=== PATIENT | male | born 1975 | race Caucasian/White ===

== ENCOUNTER 2018-10-28 10:41 | Outpatient (CLI) | payer MEDICAID, SELFPAY ==
[2018-10-28 12:58] LABS: Abs Immature Grans 0.02 k/cumm (0.0-0.09); Absolute Basophil Count 0.02 k/cumm (0.0-0.2); Absolute Eosinophil Count 0.08 k/cumm (0.0-0.7); Absolute Lymphocyte Count 1.93 k/cumm (1.2-3.4); Absolute Monocyte Count 0.57 k/cumm (0.11-0.7); Absolute Neutrophil Count 4.61 k/cumm (1.2-6.7); Basophils % 0.3; Eosinophils % 1.1; HCT 46.2 % (40.0-50.0); HGB 15.9 g/dL (13.5-17.5); Immature Grans % 0.3; Lymphocytes % 26.7; Mean Corp. HGB Concentration 34.4 g/dL (32.0-36.0); Mean Corpuscular Hemoglobin 30.7 pg (27.0-33.0); Mean Corpuscular Volume 89.2 fL (80-95); Mean Platelet Volume 10.9 fL (8.0-11.0); Monocytes % 7.9; Neutrophils % 63.7; Platelet Count 225 x1000/uL (130-400); RBC 5.18 m/cumm (4.50-6.00); RBC Distribution Width 13.1 % (11.8-14.1); White Blood Cell Count 7.23 k/cumm (4.4-10.8)
[2018-10-28 13:38] LABS: ESR 11 MM/HR (0-15)
[2018-10-28 13:45] LABS: Iron 107 ug/dL (50-175)
[2018-10-28 14:27] LABS: ALT 42 U/L (12-78); AST 15 U/L (15-37); Alkaline Phosphatase 83 U/L (46-116); BUN 8 mg/dL (7-18); CREATININE 0.84 mg/dL (0.70-1.30); Chloride 104 mmol/L (98-107); Cholesterol 161 mg/dL (50-200); Glucose 93 mg/dL (70-100); Potassium 4.3 mmol/L (3.5-5.1); Sodium 140 mmol/L (136-145); Triglyceride 180 mg/dL (30-150); Vitamin B12 367 pg/mL (193-986)
[2018-10-28 14:38] LABS: Bilirubin, Total 0.4 mg/dL (0.2-1.0); Calculated LDL 85; HDL Cholesterol 40 mg/dL (40-60)
[2018-10-28 14:52] LABS: C-Reactive Protein 0.26 mg/dL (0.0-0.3)
== END 2018-10-28 11:01 ==
PROVIDERS: PCP Family Medicine; Visit Provider Family Medicine
DX: K52.9 Noninfective gastroenteritis and colitis, unspecified (principal); R10.30 Lower abdominal pain, unspecified
CPT/HCPCS: 36415; 80053; 80061; 83721; 85652; 82607; 83540; 85025; 86140

== ENCOUNTER 2018-11-30 10:52 | Day surgery (SDC) | payer MEDICAID, SELFPAY ==
--- NOTE | 2018-11-30 07:09 | ENDO_ITS ---
Date of service: 11/30/18 Time of Service: 14:09 Endoscopy Report DATE OF PROCEDURE: 11/30/18 PRE-OP DIAGNOSIS: Abdominal pain POST-OP DIAGNOSIS: other (Duodenitis, Gastritis and esophagitis and colon polyp) PROCEDURE: 1. EGD with biopsies 2. Colonoscopy with biopsies SURGEON: Kelly Singh ANESTHESIA: other (General/ ASA 2/Carol Morales CRNA) ESTIMATED BLOOD LOSS: 5 PATHOLOGY: other (Duodenal bx, gastric bx, GE junction bx, randome bx of bowel and descending colon polyp) COMPLICATIONS: None DISPOSITION: same day INDICATIONS: Mr. Bailey is a pleasant 43 year ol male with abdominal pain. Risks, benefits and complications have been reviewed. Complications include but are not limited to bleeding, pain, perforation, missed small lesion/polyp, sore throat, aspiration and adverse reaction to the medications. Questions were entertained and answered to their satisfaction and they wished to proceed. No guarantees were given or implied. PREP: Miralax/Dulcolax PROCEDURE START TIME: 14:09 PROCEDURE END TIME: 14:53 COLONOSCOPY RETRACTION TIME: 20 minutes FINDINGS: EGD- moderate inflammation of the 1st and 2nd portion of the duodenum and stomach, mild inflammation of the esophagus Colonoscopy- normal appearing colon and terminal ileum. No inflammation noted. One descending colon polyp PROCEDURE DESCRIPTION: After informed consent was obtained the patient was take to the procedure room and placed in a supine position. Monitors were applied and a time out was done. The patients name, date of , procedure type, allergies to medications and metal in their body was reviewed. A bite block was placed and the patient was sedated. Once sedated and comfortable the gastroscope was advanced through the oropharynx which was grossly normal into the esophagus. The proximal and mid- esophagus were normal. In the distal esophagus there was mild inflammation noted. The scope was advanced into the stomach and through the pylorus into the 3rd portion of the duodenum. The 3rd portion of the duodenum was noted to be normal. In the 2nd and 1st portion of the duodenum moderate inflammation was noted. No ulcers were identified. Biopsies were done of the inflammed portion of the duodenum. The scope was retracted back into the stomach. There was moderate inflammation of the pylorus and antrum. Biopsies were done of the antrum to rule out H. pylori. Biopsies were done of the pylorus as well. There were no ulcers. The scope was retro-flexed. There was some old blood and mild inflammation noted in the cardia and fundus. There was no hiatal hernia noted. The scope was retracted back into the esophagus and biopsies were done of the GE junction to rule out Cruz's. The Z line was regular. The GE junction was at 38 cm. While the patient was still sedated they were placed in a left decubitous position. A rectal exam was done. External exam was normal. Internal exam revealed a normal sphincter tone and no palpable masses. The prostate felt smooth. The scope was then introduced and retro-flexed. No internal hemorrhoids were identified. The scope was then advanced to the cecum without difficulty. The TI and appendiceal orifice were identified. The prep was adequate. The scope was advanced into the terminal ileum for about 10 cm. The ileum looked normal. Biopsies were done to rule out microscopic colitis. The scope was then slowly retracted over 20 minutes back into the rectum. Random biopsies were done of the Ascending, transverse, descending, sigmoid and rectum to rule out microscopic colitis. One polyps was also identified in the descending colon and removed with cold forceps. The scope was removed and the patient was woken up and taken back to Same day surgery in stable condition. The patient tolerated the procedure well and there were no immediate complic ations. Follow up: 3 weeks in the office. Will start patient on Omeprazole daily and see if this helps his pain and nausea.
--- NOTE | 2018-11-30 07:11 | PDOC.DSDIS_ITS ---
Discharge Plan Disposition Patient Disposition: HOME Condition: Good Discharge Details Reason For Visit: ABD PAIN Attending Provider: Kelly Singh Primary Care Provider: Faisal Johnson Home Meds and New Rx's Prescriptions: New omeprazole magnesium [[employer] (omeprazole)] 20 mg capsule,delayed release(DR/EC) 20 mg PO DAILY Qty: 30 RF: 2 Discontinued polyethylene glycol 3350 17 gram/dose powder 238 g PO ONCE Qty: 238 RF: 0 bisacodyl [Dulcolax (bisacodyl)] 5 mg tablet,delayed release (DR/EC) 5 mg PO ONCE Qty: 4 RF: 0 Discharge Instructions Instructions: Colonoscopy (GEN), Upper Endoscopy (GEN), Duodenitis (ED), Gastritis (ED), Diet for Stomach Ulcers and Gastritis (ED), Colorectal Polyps (GEN) Additional Instructions: Findings: Inflammation of the duodenum and stomach Normal appearing large bowel and small bowel One polyp Follow up: 3 weeks Please call if you develop: fevers >101.5 Nausea or Vomiting Abdominal pain that is not transient DAY SURGERY UNIT POST COLONOSCOPY INSTRUCTIONS 1. Because there will be medication in your system for the next 24 hours, you may feel a little sleepy. Your coordination will be affected. Therefore: a. Do not drive or operate dangerous equipment for 24 hours. b. Do not drink alcohol beverages for 24 hours (not even beer). c. Plan to go home and rest for the day. 2. Generally there are no restrictions on your activity after a day or so has gone by, but you may feel a bit fatigued for a few days. 3 After you arrive home you may have a light meal and return to a normal diet as you can tolerate it without feeling sick to your stomach. 4. After surgery, you may feel pain or discomfort. This should be only transient, but if it persists please contact your doctor. 5. If there are any questions regarding the findings of your procedure, please feel free to contact your doctor. 6. If you are unable to contact your doctor with a problem, contact the hospital at [phone]. 7. Continue all your regular medications unless directed otherwise. I understand the above instructions and have no questions. Signature of Patient or Responsible Adult Escort Date/Time Name of Responsible Adult Escort Signature of Nurse Date/Time Stand Alone Forms: Gonzalo Crenshaw (DSU) Referrals: Kelly Singh MD [ [facility] STAFF PHYSICIAN] - 12/22/18 1:30 pm Activity:: Activity as Tolerated Diet:: low acid diet Discharge Orders Discharge Orders: Discharge Order (Routine); Ordered 11/30/18 Ordered By: Kelly Singh DS: Diagnosis Discharge Diagnosis (1) S/P colonoscopy: (2) H/O esophagogastroduodenoscopy: (3) Gastritis and duodenitis: (4) Esophagitis: (5) Colorectal polyp detected on colonoscopy:
[2018-11-30 11:55] VITALS: BP 119/85; PULSE 66; RESP 16; TEMP 36.1; O2SAT 99
[2018-11-30] MEDS: Lactated Ringers 1,000 ML 80 ML IV (12:13)
--- NOTE | 2018-11-30 14:12 | BOWEL_PTH ---
PATIENT: KAVITA PRATT LOC: [facility] U#:[id number] AGE/SX: 43/M ROOM: RE11/30/[address]: Kelly Singh MD : 1975 BED: DIS: 11/30/2018 SPEC #: [id number] RECD: 11/30/18 15:22 STATUS: TERRELL RECarline #: [id number] GARRY: 11/30/18 14:[address]: Kelly Singh DEPT: Surgical Specimen RECD BY: Marion Rose ENTERED: 11/30/18 15:27 SP TYPE: Bowel OTHR DR: Faisal Johnson MD Tissues: 1 - BIOPSY BOWEL 2 - BIOPSY BOWEL 3 - BIOPSY BOWEL 4 - BIOPSY BOWEL 5 - BIOPSY BOWEL 6 - BIOPSY BOWEL 7 - BIOPSY BOWEL 8 - BIOPSY BOWEL 9 - BIOPSY BOWEL 10 - BIOPSY BOWEL Procedures: GROSS AND MICRO LEVEL 4 Comments: [id number]
[2018-11-30 15:33] VITALS: BP 123/86; PULSE 60; RESP 16; TEMP 36.5; O2SAT 97
== END 2018-11-30 16:00 | disposition home or self-care (01) ==
LOC: SUR 11:30
PROVIDERS: PCP Family Medicine; Visit Provider Surgery
PROC: (CPT 45380; principal; 2018-11-30 12:45)
DX: R10.9 Unspecified abdominal pain (principal); R19.4 Change in bowel habit; K29.80 Duodenitis without bleeding; K31.89 Other diseases of stomach and duodenum; K21.0 Gastro-esophageal reflux disease with esophagitis; K22.70 Barrett's esophagus without dysplasia; D12.4 Benign neoplasm of descending colon
CPT/HCPCS: 45380; 43239; 88305

== ENCOUNTER 2018-12-30 01:16 | Outpatient (CLI) | payer MEDICAID, SELFPAY ==
--- NOTE | 2018-12-30 08:14 | DI.US_ITS ---
SYMPTOM/DIAGNOSIS: ABD PAIN, DIARRHEA, EARLY SATIETY, R10.84 ABDOMEN ULTRASOUND: The visualized liver parenchyma is normal in appearance. There is no evidence of cholelithiasis or biliary dilatation. Pancreas is somewhat heterogeneous in appearance but not grossly enlarged . There is a questionable finding. Kidneys and spleen appear normal. Abdominal aorta and IVC are of normal diameter. CONCLUSION: No evidence of cholelithiasis. Question pancreatic heterogeneity, this is a questionable finding. If there is any clinical indication of pancreatitis, additional evaluation with CT may be considered.
== END 2018-12-30 01:36 ==
PROVIDERS: PCP Family Medicine; Visit Provider Surgery
DX: R19.7 Diarrhea, unspecified; R68.81 Early satiety; K86.89 Other specified diseases of pancreas; R10.84 Generalized abdominal pain
CPT/HCPCS: 76700

== ENCOUNTER 2020-03-21 16:25 | Emergency (ER) | payer MEDICAID, SELFPAY ==
--- NOTE | 2020-03-21 16:29 | W.ED.GENAD ---
Discharge Plan Disposition Patient Disposition: HOME Condition: Good Discharge Details Clinical Impression: Femoroacetabular impingement, Acute pain of left hip Primary Care Provider: Faisal Johnson ED Provider: Maribell Jerez Home Meds and New Rx's Prescriptions: Continued nicotine 21 mg/24 hr patch 24 hour 1 patch TD Q24H Qty: 42 RF: 0 nicotine 7 mg/24 hr patch 24 hour 1 patch TD Q24H Qty: 14 RF: 0 nicotine 14 mg/24 hr patch 24 hour 1 patch TD Q24H Qty: 14 RF: 0 omeprazole 40 mg capsule,delayed release(DR/EC) 40 mg PO DAILY Qty: 30 RF: 0 famotidine 10 mg tablet 10 mg PO QHS Qty: 90 RF: 3 Discharge Instructions Instructions: Hip Pain (ED), Hip Impingement (ED) Additional Instructions: Encourage gentle range of motion and stretching. Please continue with Tylenol and ibuprofen as therapy consult. Call physical therapy tomorrow to schedule follow-up appointment, attached is a referral. Please call orthopedics to schedule follow-up appointment. If you develop fever/chills, increased pain, change in bowel or bladder habits, sensory deficits or other new/worsening symptoms please seek care urgently once again. Stand Alone Forms: Physical Therapy Referral Referrals: Faisal Johnson [Primary Care Provider] - Marcello To MD [ [facility] STAFF PHYSICIAN] - Discharge Data Discharge Date/Time-TO BE ENTERED AT DEPARTURE: 03/21/20 18:53 Medical Decision Making Patient is a pleasant 44 year old male presenting today with c/c of left hip pain. States that he had moved a trailer this morning which he believes is what caused the pain. However, pain was not immediate. No fall or trauma. He denies pain like this historically but states that he had a known deformity to th [facility] hip for which he used to see orthopedics. States that it has been several years since he was last seen for this, he used to get care in [place]. He denies N/T. No back pain. He indicates anterior aspect of the groin that radiates through to ht eback. No change in bowel or bladder habits. On exam, patient appears nontoxic. He has antalgic gait and appears uncomfortable when trying to ambulate. He has no midline pain, good ROM of lumbar spine. No pain elicited with palpation of the spine or the hip. He has pain with IR or ER, no pain with forward flexion or extension. Pain is elicited with axial loading and rotation. He reports some popping or catching, unable to elicited this during exam. Plan to move forward with XR. While I have little suspicion for fx, I am concerned for intrarticular pathology. May be labral injury. FINDINGS: Bones/joints: Slight cystic changes and cortical irregularity in the lateral head neck junction of the left femur. This can be seen in femoroacetabular impingement. Recommend correlation with symptomatology. Similar findings are also noted on right. Lesser trochanter is diminutive compared with the right which could be due to enthesopathy. No bone lesion is identified. MRI would be helpful in further evaluation. Minimal degenerative change in the bilateral sacroiliac joints, left worse than right. Soft tissues: Unremarkable. IMPRESSION: 1. Diminutive lesser trochanter could be due to old old trauma. 2. Findings suggestive of possible femoroacetabular impingement. Recommend correlation with symptomatology. MRI would also be helpful. 3. Mild degenerative change in the bilateral sacroiliac joints, left worse than right. Discussed findings. This does correlate with patients history and exam. Will refer to PT. He states pain is improved after tylenol and ibuprofen. He will continue with this at home. Will refer to orthopedics for f/u after working with PT. Return precautions given. All of his quesitons and cocnerns were addressed, he is in agreemtn with this plan. HPI General Mode of arrival: ambulatory. Date/Time Provider Initiated Documentation: 03/21/20 16:29. Limitations to Documentation: no limitations. Information obtained by: patient and RN notes reviewed. History of Present Illness 44 year old M presents to the emergency department with the chief complaint of left hip pain, described as severe, with intensity rated at 9. Quality is described as stabbing, and is localized to the left and lower extremity. Patient reports no radiation. Patient started experiencing this hour(s) and it has been constant. Immobilization improves symptom(s), Movement worsens symptoms (worse with forward flexion of the hip) . Patient notes no other symptoms.. Patient did receive the following treatments prior to arrival, none Related Data Home Medications Medication Instructions Recorded Confirmed nicotine 14 mg/24 hr daily 1 patch TD Q24H #14 each 01/26/19 01/26/19 transdermal patch nicotine 21 mg/24 hr daily 1 patch TD Q24H #42 each 01/26/19 01/26/19 transdermal patch nicotine 7 mg/24 hr daily 1 patch TD Q24H #14 each 01/26/19 01/26/19 transdermal patch famotidine 10 mg tablet 10 mg PO QHS #90 tab 11/03/19 03/21/20 omeprazole 40 mg capsule,delayed 40 mg PO DAILY #30 cap 11/03/19 03/21/20 release Previous Rx's Medication Instructions Recorded nicotine 14 mg/24 hr daily 1 patch TD Q24H #14 each 01/26/19 transdermal patch nicotine 21 mg/24 hr daily 1 patch TD Q24H #42 each 01/26/19 transdermal patch nicotine 7 mg/24 hr daily 1 patch TD Q24H #14 each 01/26/19 transdermal patch famotidine 10 mg tablet 10 mg PO QHS #90 tab 11/03/19 omeprazole 40 mg capsule,delayed 40 mg PO DAILY #30 cap 11/03/19 release Allergies Allergy/AdvReac Type Severity Reaction Status Date / Time No Known Allergies Allergy Verified 03/21/20 16:38 Review of Systems Constitutional Constitutional: Reports as per HPI, Denies chills, Denies fever(s), Denies headache(s) and Denies weakness ENT Ears, Nose, Mouth, and Throat: Denies headache(s) Cardiovascular Cardiovascular: Reports as per HPI Respiratory Respiratory: Reports as per HPI and Denies cough Musculoskeletal Musculoskeletal: Reports as per HPI and Denies tingling Integumentary/Breasts Skin/Breast: Reports as per HPI, Denies rash and Denies wounds Neurologic Neurologic: Reports as per HPI, Denies headache(s), Denies tingling, Denies paresthesias and Denies weakness [facility] Medical History (Updated 03/21/20 @ 18:43 by BEREKET Mccoy) 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 Chronic diarrhea Colorectal polyp detected on colonoscopy tubular adenoma Esophagitis Gastritis and duodenitis Tobacco dependence Surgical History H/O esophagogastroduodenoscopy (~11/30/18) S/P colonoscopy (~11/30/18) Social History Smoking/Tobacco Use Status: Current every day Tobacco Type: cigarettes Smoking risk assessment performed?: Yes Alcohol Intake: current Alcohol Intake frequency: holidays/special occasions only Alcohol type: beer Drug use: Never Substance use type: does not use Caregiver/Support person: No Household members: significant other Communication Needs: None Pets and animals: No Sexually active: Yes Do you think of yourself as: straight/heterosexual Current gender identity: male What is your relationship status?: living with partner How often do you talk on the phone with friends or family?: three or more times per week How often do you get together with friends or relatives?: twice per week How often do you attend yazdanism or buddhist services?: decline to answer Do you belong to any clubs or organized social groups?: no Panel score (0-1 are the most socially isolated patients): 2 What type of physical activity do you participate in: decline to answer Duration: 60-90 minutes/day Frequency: 3-4 times per week Juany/Hindu: none Special juany needs: No Seatbelt use: sometimes Helmet use: Yes Helmet use: sometimes Drive intox or ride w/intox truck driver rubbish collector: No Do you feel safe at home: Yes Do you feel safe in your relationship?: Yes Exam Const General: cooperative, healthy appearing, comfortable, no acute distress, well developed and well groomed Nutritional Appearance: average body habitus and well nourished Orientation: alert and awake Resp Effort & Inspection: normal respiratory effort, able to speak in complete sentences and no respiratory distress Cardio Rate: regular rate Rhythm: regular rhythm Skin General skin exam: no rashes or lesions noted Lesions: no lesions Rashes: no rashes Trauma: no lacerations or abrasions Neuro General: patient alert and patient awake Cognition: normal cognition Speech: speech normal Gait: antalgic Motor: muscle tone normal throughout, strength 5/5 throughout and no fasciculations Sensory Exam: no sensory deficits noted (no saddle paresthesias) DTR's: Rt Patellar: 2+, Lt Patellar: 2+, Rt Ankle: 2+ and Lt Ankle: 2+ Plantar Reflexes: Downgoing: bilateral Extrem General: normal to inspection Right lower extremity: normal to inspection Left lower extremity: normal to inspection, full ROM, normal capillary refill, no joint enlargement, hip/thigh Details: normal to inspection and abnormal ROM Details: pain with passive ROM Details: with internal rotation and with external rotation; no tenderness, no swelling, no ecchymosis, no crepitus, no penetrating wound, no deformity and no unusual warmth, knee Details: normal to inspection and foot Details: vascular exam Details: dorsalis pedis pulse present, posterior tibial pulse present and normal capillary refill and motor-sensory exam Details: light-touch normal; no edema Psych Appearance: grossly normal and well kempt Mental Status: mental status grossly normal Speech and Movement: speech and movement normal
[2020-03-21 16:33] VITALS: BP 139/99; PULSE 90; RESP 18; TEMP 36.2; O2SAT 98
--- NOTE | 2020-03-21 16:45 | DI.RAD_ITS ---
EXAM: XR HIP LT COMPLETE AP PELVIS CLINICAL HISTORY: hip pain anteriorly. TECHNIQUE: 2D digital imaging was performed. COMPARISON: No exams were available for comparison FINDINGS: BONES: No acute fracture is present. Mild hypertrophic and cystic changes at the junction of the head and neck of both femurs raising the question of femoral acetabular impingement. JOINTS: No dislocation present. Mild degenerative changes seen at the left SI joint. SOFT TISSUE: Normal. IMPRESSION: 1. No acute fracture or dislocation. 2. Findings raising the question of femoral acetabular impingement. MRI may be obtained for further evaluation. 3. Mild degenerative changes of the left sacroiliac joint. DATA REPOSITORY: RADIATION DOSE DELIVERED:
[2020-03-21] MEDS: Ibuprofen 600 MG TAB PO (16:59)
[2020-03-21] MEDS: Acetaminophen 500 MG TAB 1000 MG PO (16:59)
[2020-03-21] MEDS: Lidocaine 5% Patch 1 PATCH TP (17:46)
--- NOTE | 2020-03-21 17:49 | DI.VRAD_ITS ---
PROCEDURE INFORMATION: Exam: XR Left Hip with Pelvis when Performed Exam date and time: 03/21/2020 5:37 PM Age: 44 years old Clinical indication: Hip pain; Left hip TECHNIQUE: Imaging protocol: XR Left hip with pelvis when performed. Views: 2 or 3 views. COMPARISON: CT ABD PELVIS WITH CONTRAST 10/12/2017 6:40 PM FINDINGS: Bones/joints: Slight cystic changes and cortical irregularity in the lateral head neck junction of the left femur. This can be seen in femoroacetabular impingement. Recommend correlation with symptomatology. Similar findings are also noted on right. Lesser trochanter is diminutive compared with the right which could be due to enthesopathy. No bone lesion is identified. MRI would be helpful in further evaluation. Minimal degenerative change in the bilateral sacroiliac joints, left worse than right. Soft tissues: Unremarkable. IMPRESSION: 1. Diminutive lesser trochanter could be due to old old trauma. 2. Findings suggestive of possible femoroacetabular impingement. Recommend correlation with symptomatology. MRI would also be helpful. 3. Mild degenerative change in the bilateral sacroiliac joints, left worse than right. Dictated and Authenticated by: Eva Mi MD. Ordering:JOSUE Reyna MD
[2020-03-21 17:50] VITALS: BP 113/78; PULSE 77; RESP 16; O2SAT 97
[2020-03-21 18:51] VITALS: BP 120/87; PULSE 71; RESP 14; TEMP 36.8; O2SAT 97
== END 2020-03-21 18:53 | disposition home or self-care (01) ==
PROVIDERS: Emergency Provider Physician Assistant; PCP Family Medicine
DX: M25.552 Pain in left hip (principal); M25.852 Other specified joint disorders, left hip; X50.0XXA Overexertion from strenuous movement or load, initial encounter
CPT/HCPCS: 99283; 73502

== ENCOUNTER 2024-01-21 15:50 | Outpatient (REF) | payer MEDICAID, SELFPAY ==
[2024-01-21 21:54] LABS: Hemoglobin A1C 5.3 % (<5.7)
[2024-01-21 22:04] LABS: ALT 75 U/L (16-63); AST 27 U/L (15-37); Albumin 4.2 g/dL (3.4-5.0); Alkaline Phosphatase 92 U/L (46-116); Anion Gap 7.9 mmol/L (3-11); BUN 11 mg/dL (7-18); Bilirubin, Total 0.58 mg/dL (0.2-1.0); CO2 29.1 mmol/L (21.0-32.0); CREATININE 1.1 mg/dL (0.70-1.30); Calcium 9.7 mg/dL (8.5-10.1); Calculated LDL 75 mg/dL (<100); Chloride 104 mmol/L (98-107); Cholesterol 182 mg/dL (<200); Estimated GFR 81.78 (mL/min/1.73m2); Glucose 87 mg/dL (74-106); HDL Cholesterol 47 mg/dL (40-60); Potassium 4.4 mmol/L (3.5-5.1); Sodium 141 mmol/L (136-145); Total Protein 7.4 g/dL (6.4-8.2); Triglyceride 300 mg/dL (<150); Vitamin D 25 Total 27.6 ng/mL (30-100)
== END 2024-01-21 15:51 | disposition home or self-care (01) ==
LOC: NCHCN 15:50
PROVIDERS: Visit Provider Family Medicine
DX: E55.9 Vitamin D deficiency, unspecified (principal); R79.89 Other specified abnormal findings of blood chemistry; R19.7 Diarrhea, unspecified; Z13.228 Encounter for screening for other metabolic disorders
CPT/HCPCS: 80053; 80061; 82306; 83036; 84443